=== PATIENT | male | born 1985 | race Caucasian/White ===

== ENCOUNTER 2016-04-26 08:35 | Emergency (ER) | payer BC ==
[2016-04-26 09:04] VITALS: BP 126/71
[2016-04-26] MEDS ORDERED: Albuterol 6.7 GM Inhaler INH PRN (09:05)
--- NOTE | 2016-04-26 09:10 | EDM.PDOC ---
ED HISTORY OF PRESENT ILLNESS - General Chief Complaint: Respiratory Problem Stated Complaint: POSS ANXIETY/HAS HAD COUGH Time Seen by Provider: 04/26/16 09:06 Source of Information: Reports: Patient, Family (Right) History Limitations: Reports: No limitations - History of Present Illness INITIAL COMMENTS - FREE TEXT/NARRATIVE: 30-year-old male presents the ED with what sounds like awakening from sleep with an acute anxiety episode. He developed a severe paroxysmal cough which then he feels made him feel more short of breath and I think he went on to develop hyperventilation syndrome with tetany. He feels better now other than mild tingling in his fingertips. Has a mild tickle in his throat. No fever no chills and not bringing up any sputum. Symptom Onset Date: 04/26/16 Symptom Onset Time: 04:30 Timing/Duration: Reports: Hour(s): Severity: moderate Location, General: Reports: chest Quality: Reports: Ache Improves with: Reports: Other (Over time he seems to improved.) Worsens with: Reports: Breathing (Too fast.) Context, General: Denies: Activity, Exercise, Lifting, Sick contact, Trauma, Other Associated Symptoms (General): Reports: chest pain, cough, shortness of breath. Denies: cough w sputum, diaphoresis, fever/chills, headaches, loss of appetite , malaise, nausea/vomiting, seizure, syncope, weakness Treatments DESK CLERK: Reports: Other (see below) - Related Data Allergies/ADRs: Allergies Allergy/AdvReac Type Severity Reaction Status Date / Time No Known Allergies Allergy Verified 04/26/16 09:00 Home Meds: Home Meds Paxil. 04/26/16 [History] Past Medical History - Past Health History Medical/Surgical History: Denies Medical/Surgical History Social & Family History - Tobacco Use Smoking Status *Q: Current Every Day Smoker Years of Tobacco use: 8 Packs/Tins Daily: 0.5 - Caffeine Use Caffeine Use: Reports: Energy drinks - Recreational Drug Use Recreational Drug Use: No - Living Situation & Occupation Living situation: Reports: single Occupation: employed [employer] GENER[employer] - Review of Systems Review Of Systems: See Below Constitutional: Denies: fever, chills, malaise, weakness, fatigue, diaphoresis, decreased appetite, weight loss HEENT: Reports: No symptoms Respiratory: Reports: Shortness of Breath, Cough. Denies: Wheezing, Pleuritic Chest Pain, Sputum, Hemoptysis Cardiovascular: Reports: Chest pain, Lightheadedness, Palpitations. Denies: Blood pressure problem, Claudication, Edema, Orthopnea Endocrine: Reports: fatigue GI/Abdominal: Reports: No symptoms : Reports: no symptoms Musculoskeletal: Reports: no symptoms Skin: Reports: no symptoms Neurological: Reports: Confusion, Dizziness, Numbness, Paresthesia (Arms legs and face.), Tingling, Other (Developed but won't tell me.) Psychiatric: Reports: Anxiety Hematologic/Lymphatic: Reports: no symptoms Immunologic: Reports: no symptoms ED EXAM, GENERAL - Physical Exam Exam: See Below Exam Limited By: No limitations General Appearance: alert, WD/WN, anxious, mild distress Eye Exam: bilateral eye: normal inspection Throat/Mouth: Normal inspection, Normal lips, Normal teeth, Normal oropharynx Head: atraumatic, normocephalic Neck: normal inspection, supple, non-tender, full range of motion. No: lymphadenopathy (L) Respiratory/Chest: no respiratory distress, lungs clear, normal breath sounds, no accessory muscle use Cardiovascular: normal peripheral pulses, regular rate, rhythm, no edema, no gallop, no murmur, no rub GI/Abdominal: normal bowel sounds, non tender, no organomegaly, no distention, no abnormal bruit Back Exam: normal inspection, full range of motion Extremities: normal inspection, normal range of motion, non-tender, no pedal edema, normal capillary refill Neurological: alert, oriented, CN II-XII intact, normal cognition, normal gait, normal reflexes, no motor/sensory deficits Psychiatric: anxious Skin Exam: Warm, Dry, Intact, Normal color, No rash Course - Vital Signs Last Recorded V/S: Last Vital Signs Temp 36.6 C 04/26/16 09:00 Pulse 71 04/26/16 09:00 Resp 18 04/26/16 09:00 BP 126/71 04/26/16 09:00 Pulse Ox 99 04/26/16 09:00 - Orders/Labs/Meds Orders: Active Orders 24 hr Category Date Time Status RT Post Treatment Assessment [RC] Click To Edit Care 04/26/16 09:06 Active RT Pre-Treatment Assessment [RC] Click To Edit Care 04/26/16 09:06 Active Meds: Medications Discontinued Medications Generic Name Dose Route Start Last Admin Trade Name Usha PRN Reason Stop Dose Admin Albuterol 8.5 gm 04/26/16 09:05 04/26/16 09:19 Proventil Hfa INH 2 puff Q4H PRN Administration Bronchospasm - Radiology Interpretation Free Text/Narrative:: 1-year-old male presents the ED with that signs and symptoms of acute hyperventilation syndrome and panic attack. He is a strong sense of doom like he was going to when he suddenly woke from sleep at 0330 hours this morning. This continued with hyperventilation syndrome and he developed mode technique. Time he was seen the student advisor and resolved he is still weak in his upper extremities but otherwise was feeling closer to his norm. Reports he' s had similar events in the past but never to this severity. You are talking is quite apparent that he has some insight into panic disorder. Decision made not to pursue any further investigations. Plenty of fluids such as Gatorade Powerade today. If symptoms persist then there is medication so that can help to prevent this from occurring such as citalopram 20 mg once a day in the morning and Ativan at the onset of panic attack if needed. Departure - Departure Time of Disposition: 09:07 Disposition: Home, Self-Care 01 Condition: fair Clinical Impression: Bronchitis, Acute hyperventilation syndrome Instructions: Hyperventilation, Acute Bronchitis, [id number] Referrals: PCP,None [Primary Care Provider] - Forms: ED Department Discharge Additional Instructions: Evaluation and management today in regards to develop a severe paroxysmal cough waking from sleep about 0430 hours this morning. This seemed to precipitate faster breathing rate than normal as you were feeling he could not catch her breath. Then went on to develop hyperventilation syndrome with numbness tingling of the face arms upper extremities and then went on to full bulletectomy which means the muscles themselves go into spasm particularly in the hands and arms upper extremities. Sometimes associated with cramping pain as well. Symptoms had resolved pretty well by the time he came to the ED. On examination ears nose and throat show no active infection. Chest is clear postage percussion. Appears that he may have an early viral bronchitis that cause you to start coughing in the first place. Suggest a trial of albuterol metered-dose inhaler treatment 2 puffs at the onset of difficulty breathing as this may relax the upper airway and affect temperature breath better. Of course recognizing the symptoms of hyperventilation syndrome were breathing too fast will precipitate numbness tingling around the mouth and in the hands and if it continues will cause any in the upper extremities particularly. Plenty of fluids today and regular diet. - My Orders Last 24 Hours: My Active Orders 04/26/16 09:06 RT Post Treatment Assessment [RC] Click To Edit RT Pre-Treatment Assessment [RC] Click To Edit - Assessment/Plan Last 24 Hours: My Active Orders 04/26/16 09:06 RT Post Treatment Assessment [RC] Click To Edit RT Pre-Treatment Assessment [RC] Click To Edit
== END 2016-04-26 09:35 | disposition home or self-care (01) ==
LOC: JD.ED 08:35
DX: F45.8 Other somatoform disorders (principal); J40 Bronchitis, not specified as acute or chronic; F17.200 Nicotine dependence, unspecified, uncomplicated
CPT/HCPCS: 94664; 99285; A9270; 99283

== ENCOUNTER 2024-03-20 23:28 | Emergency (ER) | payer BC ==
[2024-03-20] MEDS ORDERED: Sodium Chloride 0.9% 10 ML Syringe FLUSH PRN (23:50)
[2024-03-20] MEDS: Ondansetron 4 MG/2 ML SDV IVPUSH ONE (23:58)
[2024-03-20] MEDS: Ketorolac 15 MG/ML SDV IVPUSH ONE (23:58)
[2024-03-20] MEDS: Lactated Ringers 1,000 ML IV ONE (23:59)
[2024-03-21 00:03] LABS: BASOPHILS ABSOLUTE AUTO 0.1 K/mm3 (0.0-0.2); BASOPHILS PERCENT AUTO 0.6 % (0.0-1.0); EOSINOPHILS ABSOLUTE AUTO 0.1 K/mm3 (0.0-0.4); EOSINOPHILS PERCENT AUTO 1.6 % (0.0-6.0); HEMATOCRIT 43.9 % (42.0-52.0); HEMOGLOBIN 14.7 gm/dl (14.0-18.0); IMMATURE GRAN ABSOLUTE AUTO 0.02 K/mm3 (0.00-0.05); IMMATURE GRAN PERCENT AUTO 0.2 % (0.0-0.4); LYMPHOCYTES ABSOLUTE AUTO 2.6 K/mm3 (1.0-4.8); LYMPHOCYTES PERCENT AUTO 31.5 % (24.0-44.0); MEAN CORPUSCULAR HEMOGLOBIN 28.7 pg (28.0-32.0); MEAN CORPUSCULAR HGB CONC 33.5 g/dl (32.0-36.0); MEAN CORPUSCULAR VOLUME 85.6 fl (83.0-99.0); MEAN PLATELET VOLUME 10.5 fl (9.4-12.4); MONOCYTES ABSOLUTE AUTO 0.6 K/mm3 (0.0-0.8); MONOCYTES PERCENT AUTO 7.7 % (0.0-8.0); NEUTROPHILS ABSOLUTE AUTO 4.8 K/mm3 (1.8-7.7); NEUTROPHILS PERCENT AUTO 58.4 % (41.0-71.0); PLATELET COUNT,PLT 213 K/mm3 (150-400); RED BLOOD CELL COUNT 5.13 M/mm3 (4.52-5.90); WHITE BLOOD CELL COUNT,WBC 8.23 K/mm3 (3.9-11.3)
[2024-03-21 00:13] LABS: A/G RATIO 1.3 (1-2); ALBUMIN 4.3 g/dl (3.4-5.0); BILIRUBIN TOTAL 0.4 mg/dL (0.2-1.0); BUN/CREATININE RATIO 16.2 (14-18); CALCIUM 9.2 mg/dL (8.5-10.1); CREATININE 1.3 mg/dL (0.7-1.3); EST CRCL DRUG DOSING (CG) 83.74 mL/min; PROTEIN TOTAL,TP 7.6 g/dl (6.4-8.2)
[2024-03-21] MEDS: HYDROmorphone 1 MG/ML Syringe IVPUSH ONE ×2 (00:35→03:58)
[2024-03-21 03:05] LABS: APPEARANCE,URINE CLEAR (Clear); BILIRUBIN,URINE NEGATIVE (Negative); COLOR,URINE YELLOW (Yellow); GLUCOSE,URINE NEGATIVE (Negative); KETONES,URINE TRACE (Negative); LEUKOCYTE ESTERASE,URINE NEGATIVE (Negative); NITRITE,URINE NEGATIVE (Negative); OCCULT BLOOD,URINE 2+ (Negative); PROTEIN,URINE 1+ (Negative); UROBILINOGEN,URINE 0.2 (0.2-1.0)
[2024-03-21 03:23] LABS: BACTERIA,URINE FEW /hpf (FEW); EPITHELIAL CELLS,URINE 0-5 /hpf (0-5); MUCUS,URINE MODERATE /hpf (FEW); WBC,URINE 0-5 /hpf (0-5)
[2024-03-21 04:09] VITALS: BP 135/85; PULSE 85
== END 2024-03-21 04:17 | disposition home or self-care (01) ==
LOC: JD.ED 23:28
DX: N13.2 Hydronephrosis with renal and ureteral calculous obstruction (principal); Z79.899 Other long term (current) drug therapy
CPT/HCPCS: 36415; 74176; 80053; 81001; 83690; 85025; 96361; 96374; 96375; 96376; 99284; J1171; J1885; J2405; J7120